=== PATIENT | male | born 1990 | race Two or more races ===

== ENCOUNTER 2019-02-27 10:32 | Emergency (ER) | payer OTHER ==
[~2019-02-27] VITALS: Ht 177.8 cm; Wt 89.0 kg
--- NOTE | 2019-02-27 10:49 | NUR ---
PATIENT BROUGHT BACK FORM TRIAGE WITH CHIEF COMPLAINT OF RIGHT FINGER PAIN
[2019-02-27] MEDS ORDERED: LIDOCAINE-MPF 1%, 5ML INFIL ONE (11:00)
[2019-02-27] MEDS ORDERED: LIDOCAINE-MPF 1%, 5ML ONE (11:05)
[2019-02-27 11:56] VITALS: BP 130/78
--- NOTE | 2019-02-27 11:56 | NUR ---
DISCHARGE INSTRUCTIONS REVIEWED, NO QUESTIONS AT THIS TIME
== END 2019-02-27 12:01 | disposition home or self-care (01) ==
LOC: ED 11:13
DX: L03.011 Cellulitis of right finger (principal)
CPT/HCPCS: 10060; 99283